=== PATIENT | female | born 2005 | race Caucasian/White ===

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

== ENCOUNTER 2024-01-20 02:21 | Emergency (ER) | payer OTHER ==
[2024-01-20 02:37] VITALS: BMI 40.3
[2024-01-20] MEDS ORDERED: ACETAMINOPHEN INJECTION 100 ML IVPB ONE (03:31)
[2024-01-20] MEDS ORDERED: FAMOTIDINE 20 MG/50 ML IVPB 20 MG/50 ML MG IVPB ONE (03:32)
[2024-01-20] MEDS ORDERED: ONDANSETRON 4 MG/2 ML VIAL ONE (03:32)
[2024-01-20] MEDS: ACETAMINOPHEN 1000 MG/100 ML BAG IVPB ONE (03:57)
[2024-01-20] MEDS: FAMOTIDINE 20 MG/50 ML IVPB 20 MG/50 ML MG IVPB ONE (03:57)
[2024-01-20] MEDS: LACTATED RINGERS SOLUTION 1000 ML INFUS.BAG IV ONE (03:57)
[2024-01-20] MEDS: ONDANSETRON 4 MG/2 ML VIAL IVPUSH ONE (03:58)
[2024-01-20 04:15] LABS: HEMOGLOBIN 12.8 GM/dL (10.7-15.3); MCH 28.5 pg (25.7-33.7); MCHC 33.6 g/dl (32.0-36.0); MEAN CELL VOLUME 84.7 fl (80-96); MEAN PLT VOLUME 8.8 fl (7.5-11.1); PLATELET COUNT 306 10^3/uL (134-434); RBC 4.48 M/mm3 (3.60-5.2); RDW 14.1 % (11.6-15.6); WHITE BLOOD COUNT 19.8 K/mm3 (4.0-10.0)
[2024-01-20 04:32] LABS: POTASSIUM 4.2 mmol/L (3.5-5.1)
[2024-01-20 04:34] LABS: CALCIUM 9.8 mg/dL (8.5-10.1)
[2024-01-20 04:35] LABS: ALBUMIN 4.2 g/dl (3.4-5.0); BLOOD UREA NITROGEN 11.2 mg/dL (7-18); MAGNESIUM 1.8 mg/dL (1.8-2.4)
[2024-01-20 04:39] LABS: BILIRUBIN,TOTAL 0.8 mg/dL (0.2-1); TOT PROT 8.1 g/dl (6.4-8.2)
[2024-01-20 05:26] VITALS: BP 112/51; PULSE 100; RESP 21; TEMP 99.1
[2024-01-20 06:17] LABS: ANISOCYTOSIS 2+; MACROCYTOSIS 0; ROULEAU 1+
== END 2024-01-20 05:35 | disposition home or self-care (01) ==
LOC: JER 02:21
PROC: 3E033GC Introduction of Other Therapeutic Substance into Peripheral Vein, Percutaneous Approach (ICD-10-PCS; principal; 2024-01-20)
PROC: 3E033GC Introduction of Other Therapeutic Substance into Peripheral Vein, Percutaneous Approach (ICD-10-PCS; 2024-01-20)
PROC: 3E033NZ Introduction of Analgesics, Hypnotics, Sedatives into Peripheral Vein, Percutaneous Approach (ICD-10-PCS; 2024-01-20)
DX: R11.2 Nausea with vomiting, unspecified (principal); R19.7 Diarrhea, unspecified; R10.13 Epigastric pain
CPT/HCPCS: 36415; 80053; 83690; 83735; 84703; 85025; 99284-25; J0131